=== PATIENT | male | born 1945 | race Caucasian/White ===

== ENCOUNTER 2016-08-06 11:03 | Day surgery (SDC) | payer MEDICARE, OTHER ==
--- NOTE | ~2016-08-06 | EGD ---
EGD REPORT [facility] [address] [place] [address] NAME: JAROD BARRERA : 43 STATUS : REG [facility]#: [id number] AGE: 70 ADM/REG DATE : 08/06/16 MR#: [id number] REPORT SERV DATE: 08/06/16 DICTATED BY: ROSA HARRIS DATE: 08/06/16 REPORT STATUS : Draft TRANSCRIBED BY: [facility] DATE: 08/06/16 [facility] Patient Name: Jarod Barrera Date of : 1945 Attending MD: ROSA HARRIS MD Procedure Date No Time: 08/06/2016 Procedure: Upper GI endoscopy Indications: Dysphagia, Odynophagia, Nausea Referring MD: DAVE CERVANTES Medicines: as per anesthesia Complications: No immediate complications. Procedure: Pre-Anesthesia Assessment: - ASA Grade Assessment: III - A patient with severe systemic disease. After obtaining informed consent, the endoscope was passed under direct vision. Throughout the procedure, the patient's blood pressure, pulse, and oxygen saturations were monitored continuously. The GIF [id number] was introduced through the mouth, and advanced to the third part of duodenum. The upper GI endoscopy was accomplished without difficulty. The patient tolerated the procedure well. Findings: One superficial esophageal ulcer was found in the lower third of the esophagus. The lesion was 5 mm in largest dimension. Biopsies were taken with a cold forceps for histology. Mildly severe esophagitis was found in the lower third of the esophagus. A small hiatus hernia was present. Localized mild inflammation characterized by erythema was found in the gastric antrum. Biopsies were taken with a cold forceps for histology. The examined duodenum was normal. Impression: - Esophageal ulcer. Biopsied. - Mildly severe esophagitis. - Hiatus hernia. - Gastritis. Biopsied. - Normal examined duodenum. Recommendation: - Await pathology results. - Use Protonix (pantoprazole) 40 mg PO BID. - Use sucralfate suspension 1 gram PO QID. - Follow an antireflux regimen. Procedure Code(s): --- Professional --- EGD REPORT [address] [address] NAME: JAROD BARRERA : 43 STATUS : REG [facility]#: [id number] AGE: 70 ADM/REG DATE : 08/06/16 MR#: [id number] REPORT SERV DATE: 08/06/16 DICTATED BY: ROSA HARRIS. DATE: 08/06/16 REPORT STATUS : Draft TRANSCRIBED BY: [facility] DATE: 08/06/16 [id number], Esophagogastroduodenoscopy, flexible, transoral; with biopsy, single or multiple Diagnosis Code(s): --- Professional --- K22.10, Ulcer of esophagus without bleeding K20.9, Esophagitis, unspecified K44.9, Diaphragmatic hernia without obstruction or gangrene K29.70, Gastritis, unspecified, without bleeding R13.10, Dysphagia, unspecified R11.0, Nausea CPT copyright 2013 [employer]. All rights reserved. The codes documented in this report are preliminary and upon coating mixer supervisor review may be revised to meet current compliance requirements. ROSA HARRIS MD 08/06/2016 2:07 PM This report has been signed electronically. Number of Addenda: 0 Note Initiated On: 08/06/2016 1:33 PM Scope Withdrawal Time 0 hours 0 minutes 0 seconds [address] [place] [address]
[~2016-08-06 11:03] MED LIST: ACCUPRIL40 MG PO; ASAB PO; ATV.5 PO; CARASPUDL PO; COR20 PO; IMOD PO; L20 PO; LUPRON INJECTION IM; NORV10 PO; P1 PO; PR25 PO; PRAVACHOL40 MG PO; PROTONIX PO; RENVELA800 MG PO; SODBICAR10 PO; TAXOTERE IV; ULORIC40 MG PO; VITAMIN D31000 UNIT PO; ZOFRAN4 PO
[2016-08-06 12:13] LABS: CALCIUM, SERUM 8.5 MG/DL (8.5-10.4); CHLORIDE, SERUM 106 MMOL/L (96-112); CO2 (CARBON DIOXIDE) 25 MMOL/L (24-34); POTASSIUM, SERUM 4.2 MMOL/L (3.5-5.3)
[2016-08-06 12:16] LABS: BUN (BLOOD UREA NITROGEN) 80 MG/DL (6-23); CREATININE 5.02 MG/DL (0.70-1.30); GFR AFRICAN AMERICAN 12 ML/MIN (>=60); GFR NON AFRICAN AMERICAN 11 ML/MIN (>=60); GLUCOSE, SERUM 124 MG/DL (60-99); SODIUM, SERUM 143 MMOL/L (135-148)
[2016-11-11] MEDS ORDERED: NORV10 PO (02:02)
[2016-11-11] MEDS ORDERED: ASAB PO (02:02)
[2016-11-11] MEDS ORDERED: PRAVACHOL40 MG PO (02:03)
[2016-11-11] MEDS ORDERED: ATV.5 PO (02:03)
[2016-11-11] MEDS ORDERED: COR20 PO (02:03)
[2016-11-11] MEDS ORDERED: ACCUPRIL40 MG PO (02:04)
[2016-11-11] MEDS ORDERED: SEVE800T PO (02:04)
[2016-11-11] MEDS ORDERED: ULORIC40 MG PO (02:05)
[2016-11-11] MEDS ORDERED: SODBICAR10 PO (02:05)
[2016-11-11] MEDS ORDERED: VITAMIN D31000 UNIT PO (02:06)
[2016-11-11] MEDS ORDERED: ZOFRAN4 PO (02:06)
[2016-11-11] MEDS ORDERED: P5 PO (02:07)
[2016-11-11] MEDS ORDERED: PR12.5 PO (02:07)
[2016-11-11] MEDS ORDERED: PROTONIX PO (02:08)
[2016-11-11] MEDS ORDERED: IMOD PO (02:08)
[2016-11-11] MEDS ORDERED: CARASPUDL PO (02:08)
[2016-11-11] MEDS ORDERED: TAXOTERE IV (02:10)
[2016-11-13] MEDS ORDERED: LEVAQUIN750 MG PO (12:20)
[2016-11-13] MEDS ORDERED: [UNRECOGNIZED DRUG - MIXTURE] PO/LIQ (12:22)
[2016-12-04] MEDS ORDERED: SODBICAR10 PO (12:09)
[2016-12-04] MEDS ORDERED: LAMISIL CREAM TOP (12:12)
== END 2016-08-06 23:59 | disposition home or self-care (01) ==
LOC: DMU 11:03
PROVIDERS: Anesthesiology; Internal Medicine Gastroenterology
PROC: 0DB68ZX Excision of Stomach, Via Natural or Artificial Opening Endoscopic, Diagnostic (ICD-10-PCS; 2016-08-06)
PROC: 0DB38ZX Excision of Lower Esophagus, Via Natural or Artificial Opening Endoscopic, Diagnostic (ICD-10-PCS; principal; 2016-08-06 12:30)
DX: K22.10 Ulcer of esophagus without bleeding (principal); K44.9 Diaphragmatic hernia without obstruction or gangrene; K21.9 Gastro-esophageal reflux disease without esophagitis; I10 Essential (primary) hypertension; E78.5 Hyperlipidemia, unspecified; E78.00 Pure hypercholesterolemia, unspecified; N19 Unspecified kidney failure; Z85.46 Personal history of malignant neoplasm of prostate; Z88.2 Allergy status to sulfonamides; Z79.52 Long term (current) use of systemic steroids; Z79.82 Long term (current) use of aspirin; Z79.899 Other long term (current) drug therapy; Z90.89 Acquired absence of other organs; Z98.890 Other specified postprocedural states
CPT/HCPCS: 80048; 88305; J1720